=== PATIENT | male | born 1970 | race Hispanic/Latino ===

== ENCOUNTER 2021-10-25 07:35 | Day surgery (SDC) | payer BC ==
[~2021-10-25] VITALS: Ht 170.2 cm; Wt 84.4 kg
--- NOTE | 2021-10-25 10:14 | NUR ---
10/25/21 1014 Palmira [place]roy 1011 PATIENT ARRIVES TO PACU RESTING WITH EYES CLOSED. OPENS EYES AND ASKS QUESTIONS APPROPRIATELY WITH VERBAL STIMULI. SLEEPING WHEN NOT STIMULATED. RESP EVEN AND UNLABORED, NC AT 2 LITERS TURNED OFF ON ARRIVAL TO PACU.
--- NOTE | 2021-10-29 10:04 | OR ---
[facility] [address], [place] [address] Signed DATE OF OPERATION: 10/25/2021 SURGEON: Loli Gonzalez MD PREOPERATIVE DIAGNOSIS: Screening. POSTOPERATIVE DIAGNOSIS: Unremarkable colonoscopy. PROCEDURE: Colonoscopy no biopsy. ESTIMATED BLOOD LOSS: None. INDICATIONS: Nisha is a 51-year-old gentleman, asked to see me for screening colonoscopy. He has no lower GI complaints. There is no family history of colon cancer or polyps. He said this would be his 1st colonoscopy. In the office, I gave him a pamphlet on colonoscopy and we reviewed the nature of the test. There is risk including, but not limited to gas bloating, crampy abdominal pain, bleeding, perforation requiring surgery, and missed diagnosis. We also discussed the need for IV conscious sedation. He had expressed understanding and wished to proceed. PROCEDURE NOTE: Nisha was taken into our endoscopy suite and placed in the left lateral decubitus position. He was given a total of 8 mg of Versed and 125 mcg of fentanyl to cover the case. Even then, he was frequently awake with his eyes open and looking at the screen. However, he seemed comfortable throughout most of the procedure. There were few times we did pause and gave some additional medication. The scope passed readily into the cecum itself. His prep was quite good. We could easily see the appendiceal orifice and the ileocecal valve. The scope was then slowly withdrawn. We took pictures for photodocumentation. We found no pathology whatsoever in the entire colon or rectum. Upon retroflexion of the scope, there was no additional pathology noted above the anal canal. We also noticed that his prostate is unremarkable as well. After this, the gas was suctioned out and colonoscope removed. Nisha tolerated the procedure quite well. RECOMMENDATIONS: Nisha can follow up in 10 years for repeat screening colonoscopy. Electronically Signed By: LOLI GONZALEZ MD 10/26/21 0811 PATIENT NAME: NISHA HONG OPERATIVE REPORT DATE OF : 70 REPORT #: [id number] PHYSICIAN: LOLI GONZALEZ MD PCP: KEAGAN RODRÍGUEZ MD REPORT IS CONFIDENTIAL AND NOT TO BE RELEASED WITHOUT AUTHORIZATION [address] [address] Signed Loli Gonzalez MD ALB/MODL /[id number] cc: MD Keagan Leonard MD Copies: LOLI GONZALEZ MD, RUSSEL J MD ~ Electronically Signed By: LOLI GONZALEZ MD 10/26/21810 PATIENT NAME: NISHA HONG OPERATIVE REPORT DATE OF : 70 REPORT #: [id number] PHYSICIAN: LOLI GONZALEZ MD PCP: KEAGAN RODRÍGEUZ MD REPORT IS CONFIDENTIAL AND NOT TO BE RELEASED WITHOUT AUTHORIZATION
== END 2021-10-25 10:45 | disposition home or self-care (01) ==
LOC: DS 07:35
PROVIDERS: ATTEND Colon & Rectal Surgery
PROC: 0DJD8ZZ Inspection of Lower Intestinal Tract, Via Natural or Artificial Opening Endoscopic (ICD-10-PCS; principal; 2021-10-25 08:30)
DX: Z12.11 Encounter for screening for malignant neoplasm of colon (principal); F12.90 Cannabis use, unspecified, uncomplicated
CPT/HCPCS: 99153; G0500; J2250; J3010; J7121

== ENCOUNTER 2022-02-16 13:23 | Emergency (ER) | payer OTHER, BC ==
[~2022-02-16] VITALS: Ht 170.2 cm; Wt 85.3 kg
[2022-02-16] MEDS ORDERED: PREDNISONE20 MG PO (15:57)
== END 2022-02-16 16:09 | disposition home or self-care (01) ==
LOC: ED 13:23
DX: M54.12 Radiculopathy, cervical region (principal)
CPT/HCPCS: 99283; A9270; J7512